=== PATIENT | female | born 1950 | race Caucasian/White ===

== ENCOUNTER 2020-11-20 16:27 | Emergency (ER) | payer OTHER, BC ==
[2020-11-20 16:48] VITALS: BP 157/78; PULSE 95; TEMP 98.4; BMI 27.1
== END 2020-11-20 17:32 | disposition home or self-care (01) ==
LOC: JER 16:27
DX: I10 Essential (primary) hypertension (principal)
CPT/HCPCS: 93005; 93010; 99283-25

== ENCOUNTER 2022-01-12 00:19 | Emergency (ER) | payer OTHER, BC ==
[2022-01-12 01:04] VITALS: BMI 27.4
[2022-01-12] MEDS ORDERED: SODIUM CHLORIDE 500 ML IV STA (01:26)
[2022-01-12 01:52] LABS: BASO % 0.2 % (0-2.0); EOS % 2.5 % (0-4.5); HEMATOCRIT 37.7 % (32.4-45.2); HEMOGLOBIN 13.1 GM/dL (10.7-15.3); LYMPH % 14.3 % (8-40); MCHC 34.6 g/dl (32.0-36.0); MEAN CELL VOLUME 92.5 fl (80-96); MEAN PLT VOLUME 6.2 fl (7.5-11.1); MONO % 9.7 % (3.8-10.2); NEUT % 73.3 % (42.8-82.8); PLATELET COUNT 266 10^3/uL (134-434); RBC 4.08 M/mm3 (3.60-5.2); RDW 12.5 % (11.6-15.6); WHITE BLOOD COUNT 6.9 K/mm3 (4.0-10.0)
[2022-01-12 02:14] LABS: ALBUMIN 4.4 g/dl (3.4-5.0); BLOOD UREA NITROGEN 20.5 mg/dL (7-18); CALCIUM 9.3 mg/dL (8.5-10.1)
[2022-01-12 02:17] LABS: CREATININE 0.9 mg/dL (0.55-1.3)
[2022-01-12 02:19] LABS: TOT PROT 7.4 g/dl (6.4-8.2)
[2022-01-12 02:21] LABS: BILIRUBIN,TOTAL 0.9 mg/dL (0.2-1)
[2022-01-12] MEDS ORDERED: POTASSIUM CHLORIDE TABS 20 MEQ TABLET.ER (FP) PO ONE (04:06)
[2022-01-12] MEDS ORDERED: MAGNESIUM SULF 50% (8.12 MEQ/2 ML-1 GM VIAL) IVPB ONE (04:06)
[2022-01-12] MEDS ORDERED: MAGNESIUM SULFATE IN WATER 2 GM/50 ML IVPB IVPB ONE (04:15)
[2022-01-12] MEDS ORDERED: POTASSIUM CHLORIDE ORAL LIQUID 20 MEQ/15 ML ONE (04:15)
[2022-01-12 06:08] VITALS: TEMP 97.8
[2022-01-12 09:18] VITALS: BP 151/69; PULSE 84
== END 2022-01-12 09:05 | disposition home or self-care (01) ==
LOC: JER 00:19
PROC: 3E033GC Introduction of Other Therapeutic Substance into Peripheral Vein, Percutaneous Approach (ICD-10-PCS; principal; 2022-01-12)
DX: R00.0 Tachycardia, unspecified (principal)
CPT/HCPCS: 36415; 80053; 84443; 84484; 85025; 93005; 93010; 99284-25

== ENCOUNTER 2023-05-03 10:47 | Inpatient (IN) | payer OTHER, BC ==
[2023-05-03 10:54] VITALS: BMI 28.3
[2023-05-03] MEDS ORDERED: ACETAMINOPHEN 500 MG TABLET (FP) PO ONE (11:44)
[2023-05-03] MEDS ORDERED: ACETAMINOPHEN 325 MG TABLET (FP) ONE (11:51)
[2023-05-03] MEDS ORDERED: LIDOCAINE 5% TOPICAL PATCH TP ONE (12:11)
[2023-05-03] MEDS ORDERED: LIDOCAINE 4% PATCH TP ONE (12:30)
[2023-05-03] MEDS ORDERED: morphine CARPU-JECT 4 MG/1 ML DISP.SYRIN IVPUSH ONE (17:02)
[2023-05-03] MEDS ORDERED: morphine CARPU-JECT 2 MG/1 ML DISP.SYRIN IVPUSH ONE (18:08)
[2023-05-03 19:29] LABS: BASO % 0.3 % (0-2.0); EOS % 0.2 % (0-4.5); HEMATOCRIT 38.8 % (32.4-45.2); HEMOGLOBIN 13.5 GM/dL (10.7-15.3); LYMPH % 12.8 % (8-40); MCH 31.8 pg (25.7-33.7); MCHC 34.7 g/dl (32.0-36.0); MEAN CELL VOLUME 91.5 fl (80-96); MEAN PLT VOLUME 6.8 fl (7.5-11.1); NEUT % 79.7 % (42.8-82.8); PLATELET COUNT 290 10^3/uL (134-434); RBC 4.24 M/mm3 (3.60-5.2); RDW 12.7 % (11.6-15.6); WHITE BLOOD COUNT 12.2 K/mm3 (4.0-10.0)
[2023-05-03 19:38] LABS: PROTHROMBIN TIME (PATIENT) 11.6 SEC (9.7-13.0)
[2023-05-03 19:41] LABS: ACTIVATED PTT 36.5 SECONDS (25.2-36.5)
[2023-05-03 19:48] LABS: POTASSIUM 4.2 mmol/L (3.5-5.1)
[2023-05-03 19:50] LABS: CALCIUM 9.5 mg/dL (8.5-10.1)
[2023-05-03 19:51] LABS: ALBUMIN 4.4 g/dl (3.4-5.0)
[2023-05-03 19:54] LABS: CREATININE 0.9 mg/dL (0.55-1.3)
[2023-05-03 19:55] LABS: BILIRUBIN,TOTAL 1.1 mg/dL (0.2-1)
[2023-05-03 19:56] LABS: TOT PROT 7.4 g/dl (6.4-8.2)
[2023-05-03] MEDS ORDERED: ACETAMINOPHEN 1000 MG/100 ML BAG IVPB PRN (21:52)
[2023-05-03 21:56] LABS: EPI CELLS 4 /uL (0-25.1); HYALINE CASTS 0 /uL (0-3.1); PH,URINE 7.5 (5.0-8.0); URINE APPEARANCE CLOUDY; URINE BACTERIA 46 /uL (0-1359); URINE BILIRUBIN NEGATIVE (NEGATIVE); URINE COLOR YELLOW; URINE GLUCOSE (UA) NEGATIVE (NEGATIVE); URINE KETONE NEGATIVE (NEGATIVE); URINE LEUK ESTERASE 3+ (NEGATIVE); URINE NITRITE NEGATIVE (NEGATIVE); URINE PROTEIN NEGATIVE (NEGATIVE); URINE RBC 27 /uL (0-23.9); URINE UROBILINOGEN 0.2 mg/dL (0.2-1.0); URINE WBC 2029 /uL (0-25.8)
[2023-05-03] MEDS ORDERED: LIDOCAINE PATCH REMOVAL MC SCH (22:00)
[2023-05-03 22:08] LABS: HEMATOCRIT 34.4 % (32.4-45.2); HEMOGLOBIN 12.3 GM/dL (10.7-15.3); MCH 32.3 pg (25.7-33.7); MCHC 35.6 g/dl (32.0-36.0); MEAN CELL VOLUME 90.6 fl (80-96); MEAN PLT VOLUME 5.9 fl (7.5-11.1); PLATELET COUNT 262 10^3/uL (134-434); RDW 12.4 % (11.6-15.6); WHITE BLOOD COUNT 10.1 K/mm3 (4.0-10.0)
[2023-05-03] MEDS ORDERED: ATORVASTATIN CA 20 MG TABLET (FP) ONE (22:18)
[2023-05-03] MEDS ORDERED: metoPROLOL SUCCINATE 25 MG TAB.SR.24H (FP) PO ONE (22:18)
[2023-05-03] MEDS: ATORVASTATIN CA 20 MG TABLET (FP) PO SCH (22:24)
[2023-05-03] MEDS: metoPROLOL SUCCINATE 25 MG TAB.SR.24H (FP) PO SCH (22:24)
[2023-05-03] MEDS ORDERED: ACETAMINOPHEN INJECTION 100 ML IVPB ONE (23:09)
[2023-05-04] MEDS ORDERED: LIDOCAINE PATCH REMOVAL MC ONE
[2023-05-04 08:52] LABS: HEMATOCRIT 37.3 % (32.4-45.2); HEMOGLOBIN 13.1 GM/dL (10.7-15.3); MCH 32.3 pg (25.7-33.7); MCHC 35.1 g/dl (32.0-36.0); MEAN CELL VOLUME 91.9 fl (80-96); MEAN PLT VOLUME 6.5 fl (7.5-11.1); PLATELET COUNT 272 10^3/uL (134-434); RBC 4.06 M/mm3 (3.60-5.2); RDW 12.7 % (11.6-15.6); WHITE BLOOD COUNT 8.3 K/mm3 (4.0-10.0)
[2023-05-04 09:03] LABS: POTASSIUM 3.9 mmol/L (3.5-5.1)
[2023-05-04 09:11] LABS: BLOOD UREA NITROGEN 13.1 mg/dL (7-18)
[2023-05-04 09:13] LABS: MAGNESIUM 1.9 mg/dL (1.8-2.4)
[2023-05-04 09:14] LABS: CREATININE 0.8 mg/dL (0.55-1.3); PHOSPHOROUS 3.8 mg/dL (2.5-4.9)
[2023-05-04 09:16] LABS: BILIRUBIN,TOTAL 2.2 mg/dL (0.2-1); TOT PROT 6.8 g/dl (6.4-8.2)
[2023-05-04] MEDS ORDERED: ACETAMINOPHEN 325 MG TABLET (FP) PO PRN (09:16)
[2023-05-04] MEDS ORDERED: oxyCODONE HCL 5 MG TABLET PO PRN (09:16)
[2023-05-04] MEDS ORDERED: metoPROLOL SUCCINATE 25 MG TAB.SR.24H (FP) PO ONE (09:24)
[2023-05-04] MEDS ORDERED: oxyCODONE HCL 5 MG TABLET ONE (09:24)
[2023-05-04] MEDS ORDERED: ENOXAPARIN NA (PORCINE) 40 MG/0.4 ML DISP.SYRIN SQ ONE (09:25)
[2023-05-04] MEDS ORDERED: KETOROLAC TROMETHAMINE 15 MG/ML VIAL ONE (09:25)
[2023-05-04] MEDS: metoPROLOL SUCCINATE 25 MG TAB.SR.24H (FP) PO SCH ×2 (09:36→21:48)
[2023-05-04] MEDS: KETOROLAC TROMETHAMINE 15 MG/ML VIAL IM ONE ×2 (09:36→09:39)
[2023-05-04] MEDS: ENOXAPARIN NA (PORCINE) 40 MG/0.4 ML DISP.SYRIN SQ SCH (09:36)
[2023-05-04] MEDS: oxyCODONE HCL 5 MG TABLET PO PRN (09:37)
[2023-05-04] MEDS: MINOXIDIL 2.5 MG TABLET PO SCH (21:49)
[2023-05-04] MEDS: ATORVASTATIN CA 20 MG TABLET (FP) PO SCH (21:49)
[2023-05-04] MEDS: amLODIPine BESYLATE 10 MG TABLET (FP) PO SCH (21:49)
[2023-05-05 09:51] LABS: BASO % 0.2 % (0-2.0); EOS % 1.9 % (0-4.5); HEMOGLOBIN 12.7 GM/dL (10.7-15.3); LYMPH % 12.5 % (8-40); MCH 31.9 pg (25.7-33.7); MCHC 34.3 g/dl (32.0-36.0); MEAN CELL VOLUME 93.1 fl (80-96); MEAN PLT VOLUME 6.2 fl (7.5-11.1); MONO % 8.2 % (3.8-10.2); NEUT % 77.2 % (42.8-82.8); PLATELET COUNT 254 10^3/uL (134-434); RBC 3.98 M/mm3 (3.60-5.2); RDW 12.3 % (11.6-15.6); WHITE BLOOD COUNT 7.3 K/mm3 (4.0-10.0)
[2023-05-05 10:12] LABS: POTASSIUM 4.4 mmol/L (3.5-5.1)
[2023-05-05 10:21] LABS: CALCIUM 8.9 mg/dL (8.5-10.1)
[2023-05-05 10:22] LABS: ALBUMIN 3.7 g/dl (3.4-5.0)
[2023-05-05 10:25] LABS: CREATININE 0.7 mg/dL (0.55-1.3)
[2023-05-05 10:26] LABS: TOT PROT 6.7 g/dl (6.4-8.2)
[2023-05-05 10:27] LABS: BILIRUBIN,TOTAL 1.7 mg/dL (0.2-1)
[2023-05-05] MEDS: metoPROLOL SUCCINATE 25 MG TAB.SR.24H (FP) PO SCH ×2 (10:32→21:44)
[2023-05-05] MEDS: ENOXAPARIN NA (PORCINE) 40 MG/0.4 ML DISP.SYRIN SQ SCH (10:32)
[2023-05-05] MEDS: VALSARTAN 160 MG TABLET PO SCH (11:46)
[2023-05-05 12:19] VITALS: RESP 20
[2023-05-05] MEDS: MINOXIDIL 2.5 MG TABLET PO SCH (18:58)
[2023-05-05] MEDS: oxyCODONE HCL 5 MG TABLET PO PRN (18:59)
[2023-05-05] MEDS: amLODIPine BESYLATE 10 MG TABLET (FP) PO SCH (21:44)
[2023-05-05] MEDS: ATORVASTATIN CA 20 MG TABLET (FP) PO SCH (21:44)
[2023-05-06 07:45] LABS: BASO % 0.2 % (0-2.0); EOS % 3.2 % (0-4.5); HEMATOCRIT 38.1 % (32.4-45.2); HEMOGLOBIN 12.7 GM/dL (10.7-15.3); MCH 31.1 pg (25.7-33.7); MCHC 33.3 g/dl (32.0-36.0); MEAN CELL VOLUME 93.5 fl (80-96); MEAN PLT VOLUME 6.1 fl (7.5-11.1); MONO % 10.8 % (3.8-10.2); NEUT % 70.8 % (42.8-82.8); PLATELET COUNT 251 10^3/uL (134-434); RBC 4.07 M/mm3 (3.60-5.2); RDW 12.3 % (11.6-15.6); WHITE BLOOD COUNT 8.9 K/mm3 (4.0-10.0)
[2023-05-06 08:12] LABS: POTASSIUM 4.2 mmol/L (3.5-5.1)
[2023-05-06 08:16] LABS: ALBUMIN 3.6 g/dl (3.4-5.0); BLOOD UREA NITROGEN 15.4 mg/dL (7-18); CALCIUM 8.7 mg/dL (8.5-10.1); MAGNESIUM 1.9 mg/dL (1.8-2.4)
[2023-05-06 08:19] LABS: CREATININE 0.7 mg/dL (0.55-1.3)
[2023-05-06 08:21] LABS: TOT PROT 6.6 g/dl (6.4-8.2)
[2023-05-06 08:24] LABS: BILIRUBIN,TOTAL 1.7 mg/dL (0.2-1)
[2023-05-06] MEDS: metoPROLOL SUCCINATE 25 MG TAB.SR.24H (FP) PO SCH (10:23)
[2023-05-06] MEDS: ENOXAPARIN NA (PORCINE) 40 MG/0.4 ML DISP.SYRIN SQ SCH (10:23)
[2023-05-06] MEDS: VALSARTAN 160 MG TABLET PO SCH (10:23)
[2023-05-06] MEDS: oxyCODONE HCL 5 MG TABLET PO PRN (13:07)
[2023-05-06 14:11] VITALS: BP 133/59; PULSE 88; TEMP 99
== END 2023-05-06 14:59 | DRG 536 ==
LOC: JER 10:47 → JERBED 17:21 → OBSVTOIN 17:21 → INTOOBSV 17:21 → UNDOADMOB 17:21 → JERBED 21:14 → OBSVTOIN 21:14 → J8W 05-04 16:15
PROVIDERS: ADMIT Internal Medicine; ATTEND Nurse Practitioner Family
DX: S32.491A Other specified fracture of right acetabulum, initial encounter for closed fracture (principal); I10 Essential (primary) hypertension; E78.5 Hyperlipidemia, unspecified; E66.9 Obesity, unspecified; Z68.28 Body mass index [BMI] 28.0-28.9, adult; W01.0XXA Fall on same level from slipping, tripping and stumbling without subsequent striking against object, initial encounter; Y92.098 Other place in other non-institutional residence as the place of occurrence of the external cause
CPT/HCPCS: 36415; 72192-TC; 73521-TC-FY; 73552-TC-RT-FY; 80053; 81003; 83735; 84100; 85025; 85027; 85610; 85730; 86850; 86900; 86901; 87635; 93005; 93010; 97116-GP; 97161-GP; 99285-25